=== PATIENT | male | born 1990 | race Caucasian/White ===

== ENCOUNTER 2019-08-17 15:20 | Emergency (ER) | payer MEDICAID ==
[~2019-08-17] VITALS: Ht 177.8 cm; Wt 92.0 kg
[2019-08-17 15:33] VITALS: BP 125/79
[2019-08-17] MEDS ORDERED: AMOX-580 PO (16:08)
[2019-08-17] MEDS ORDERED: ketorolac tromethamine 15mg/ml inj. IM ONE (16:10)
== END 2019-08-17 16:33 | disposition home or self-care (01) ==
LOC: ER 15:22
DX: J32.1 Chronic frontal sinusitis (principal); R51 Headache; F17.299 Nicotine dependence, other tobacco product, with unspecified nicotine-induced disorders
CPT/HCPCS: 99283; 99406; J1885

== ENCOUNTER 2019-08-17 20:44 | Emergency (ER) | payer MEDICAID ==
[~2019-08-17] VITALS: Ht 177.8 cm; Wt 86.4 kg
[~2019-08-17 20:44] MED LIST: AMOX-580 PO
[2019-08-17 20:51] VITALS: BP 146/91
[2019-08-17] MEDS ORDERED: ketorolac tromethamine 15mg/ml inj. IM ONE (21:25)
[2019-08-17] MEDS ORDERED: amox tr/potassium clavulanate 875/125mg TAB PO ONE (21:40)
== END 2019-08-17 21:52 | disposition home or self-care (01) ==
LOC: ER 20:45
DX: J32.0 Chronic maxillary sinusitis (principal); Z86.14 Personal history of Methicillin resistant Staphylococcus aureus infection
CPT/HCPCS: 96372; 99283; J1885

== ENCOUNTER 2019-11-01 20:42 | Emergency (ER) | payer MEDICAID, OTHER ==
[~2019-11-01] VITALS: Ht 177.8 cm; Wt 88.6 kg
[2019-11-01 20:59] VITALS: BP 147/90
[2019-11-01] MEDS ORDERED: HYDR-3965 PO (21:20)
[2019-11-01] MEDS ORDERED: AMOX500C2 PO (21:20)
[2019-11-01] MEDS ORDERED: ketorolac trometh inj. 60 MG/2 ML VIAL IM ONE (21:25)
--- NOTE | 2019-11-01 21:49 | NUR ---
pt seen and dc'd by provider
== END 2019-11-01 21:49 | disposition home or self-care (01) ==
LOC: ER 20:44
DX: K02.9 Dental caries, unspecified (principal); Z79.2 Long term (current) use of antibiotics; Z79.899 Other long term (current) drug therapy; Z86.14 Personal history of Methicillin resistant Staphylococcus aureus infection
CPT/HCPCS: 99283; J1885

== ENCOUNTER 2020-03-15 18:10 | Inpatient (IN) | payer MEDICAID ==
[~2020-03-15] VITALS: Ht 177.8 cm; Wt 95.7 kg
[2020-03-15] MEDS ORDERED: normal saline 1000ML IV soln IVB ONE (18:30)
--- NOTE | 2020-03-15 18:31 | NUR ---
Called poison control and opened a case concerning the patient. Poison control was notified that the patient ingested 1/5 of alcohol, 3 prozac, and 2 "handfuls" of gabapentin at an unknown dose. Poison control reported that gabapentin is well-tolerated and high dose effects include sedation, ataxia, and slurred speech. High doses of prozac can cause seizures. Poison control recommended to rule out aspirin and tylenol ingestion and to have an EKG performed. If QRS is greater than 120 to give bolus of bicarb and if QTC is greater than 500 to optimize electrolytes.
[2020-03-15 18:42] LABS: EOSINOPHILS # (AUTO) 0.3 X10'3 (0-0.9); LYMPHOCYTES % (AUTO) 39.1 % (21-51); MEAN PLATELET VOLUME 7.6 FL (7.4-10.4); MONOCYTES # (AUTO) 0.7 X10'3 (0-0.9); NEUTROPHILS # (AUTO) 5.8 X10'3 (1.8-7.7); RED CELL DISTRIBUTION WIDTH 14.2 % (11.5-14.5)
[2020-03-15 18:43] LABS: BASOPHILS # (AUTO) 0.2 X10'3 (0-0.2); BASOPHILS % (AUTO) 1.4 % (0-1); EOSINOPHILS % (AUTO) 2.6 % (0-6); HEMATOCRIT 49.7 % (42.0-52.0); HEMOGLOBIN 17.4 g/dl (14.0-17.9); LYMPHOCYTES # (AUTO) 4.4 X10'3 (1.1-4.8); MEAN CORPUSCULAR HEMOGLOBIN 32.7 PG (27.0-31.0); MEAN CORPUSCULAR VOLUME 93.4 FL (78-98); MONOCYTES % (AUTO) 5.9 % (2-12); PLATELET COUNT 331 X10'3 (140-440); RED BLOOD COUNT 5.32 X10'6 (4.70-6.10); WHITE BLOOD COUNT 11.4 X10'3 (4.5-11.0)
[2020-03-15] MEDS ORDERED: NO HOME MEDS (18:51)
[2020-03-15 18:54] LABS: ALANINE AMINOTRANSFERASE 34 U/L (12-78); ALBUMIN 4.4 G/DL (3.4-5.0); ALBUMIN/GLOBULIN RATIO 1.4 (1.1-1.5); ALKALINE PHOSPHATASE 116 IU/L (46-116); ANION GAP 10 (8-16); ASPARTATE AMINO TRANSFERASE 32 U/L (10-37); BILIRUBIN,TOTAL 0.6 MG/DL (0.1-1.0); BLOOD UREA NITROGEN 8 MG/DL (7-18); BUN/CREATININE RATIO 6.7 (5.4-32.0); CALCIUM 9.3 MG/DL (8.5-10.1); CHLORIDE 106 MMOL/L (99-107); CREATININE 1.19 MG/DL (0.60-1.10); ETHANOL 0.194 GM/DL (0.0-0.010); GLUCOSE 72 MG/DL (70-104); SODIUM 143 MMOL/L (135-145); TOTAL CARBON DIOXIDE 26.6 MMOL/L (24-32); TOTAL PROTEIN 7.5 G/DL (6.4-8.2); eGFR 72 ML/MIN
--- NOTE | 2020-03-15 18:58 | NUR ---
Jules Heredia pt mother [phone]
--- NOTE | 2020-03-15 19:02 | NUR ---
Spoke to pt's mother Beti who confirmed that the patient took gabapentin and prozac. She reported that the patient has been very depressed and talking about suicide for a while. She stated that he recently had been talking about "giving up."
[2020-03-15 19:06] LABS: ACETAMINOPHEN < 2.0 UG/ML (10-30)
[2020-03-15 19:09] LABS: POTASSIUM 2.6 MMOL/L (3.5-5.1)
[2020-03-15] MEDS ORDERED: potassium Cl 10 mEq/100mL bag IV ONE (19:25)
[2020-03-15 19:34] LABS: URINE AMPHETAMINE SCREEN POSITIVE (Neg); URINE BARBITUATE SCREEN NEGATIVE (Neg); URINE BENZODIAZEPINES SCREEN POSITIVE (Neg); URINE METHADONE SCREEN NEGATIVE (Neg)
[2020-03-15 19:35] LABS: URINE CANNABINOID SCREEN POSITIVE (Neg); URINE COCAINE SCREEN NEGATIVE (Neg); URINE OPIATE SCREEN NEGATIVE (Neg); URINE PHENCYCLIDINE SCREEN NEGATIVE (Neg)
[2020-03-15] MEDS ORDERED: potassium Cl 20mEq in NS 1,000 ML IV SCH (21:36)
[2020-03-15] MEDS ORDERED: potassium CL 10mEq/100ml bag 100 ML IV PRN (21:40)
[2020-03-15] MEDS ORDERED: magnesium hydroxide 30ml (MOM) UD suspension PO PRN (21:40)
[2020-03-15] MEDS ORDERED: acetaminophen 325mg tablet PO PRN (21:40)
[2020-03-15] MEDS ORDERED: ondansetron/PF 4mg/2ml inj IV PRN (21:40)
--- NOTE | 2020-03-15 21:59 | NUR ---
Contacted poison control to follow up on patient's status. Relayed current vital signs, lab results, and pt's mentation being alert and oriented and arousable with verbal stimulai. Poison control reported that 6 hours post time of ingestion is when they typically cut off observation and at this point medical clearance is up to the discretion of the ED physician. This information was given to MD Romo.
--- NOTE | 2020-03-15 22:15 | NUR ---
He just asked for a liter of ice water so I got that for him, he said he is just 'so thirsty' He drank most of it and is laying back down now.
[2020-03-15 23:00] VITALS: BP 127/64
--- NOTE | 2020-03-15 23:00 | NUR ---
PATIENT ADMITTED TO ROOM 347B FROM ER FOR SUICIDE ATTEMPT 5150 AND HYPOKALEMIA. PLACED COMFORTABLE IN BED. VITAL SIGNS TAKEN AND RECORDED.
[2020-03-16] MEDS: potassium CL 10mEq/100ml bag 100 ML IV PRN ×2 (00:30→02:53)
[2020-03-16 05:33] LABS: BASOPHILS % (AUTO) 0.5 % (0-1); EOSINOPHILS % (AUTO) 0.4 % (0-6); HEMATOCRIT 44.2 % (42.0-52.0); LYMPHOCYTES # (AUTO) 1.8 X10'3 (1.1-4.8); LYMPHOCYTES % (AUTO) 22.6 % (21-51); MEAN CORPUSCULAR HEMOGLOBIN 31.6 PG (27.0-31.0); MEAN CORPUSCULAR HGB CONC 33.9 g/dL (33.0-36.5); MEAN CORPUSCULAR VOLUME 93.3 FL (78-98); MONOCYTES # (AUTO) 0.5 X10'3 (0-0.9); MONOCYTES % (AUTO) 6.5 % (2-12); NEUTROPHILS # (AUTO) 5.4 X10'3 (1.8-7.7); PLATELET COUNT 252 X10'3 (140-440); RED BLOOD COUNT 4.74 X10'6 (4.70-6.10); RED CELL DISTRIBUTION WIDTH 14.1 % (11.5-14.5); WHITE BLOOD COUNT 7.8 X10'3 (4.5-11.0)
[2020-03-16 05:53] LABS: ALANINE AMINOTRANSFERASE 27 U/L (12-78); ALBUMIN 3.4 G/DL (3.4-5.0); ALBUMIN/GLOBULIN RATIO 1.3 (1.1-1.5); ALKALINE PHOSPHATASE 90 IU/L (46-116); ANION GAP 11 (8-16); ASPARTATE AMINO TRANSFERASE 31 U/L (10-37); BILIRUBIN,TOTAL 0.4 MG/DL (0.1-1.0); BLOOD UREA NITROGEN 5 MG/DL (7-18); BUN/CREATININE RATIO 6.8 (5.4-32.0); CALCIUM 7.5 MG/DL (8.5-10.1); CHLORIDE 104 MMOL/L (99-107); CREATININE 0.74 MG/DL (0.60-1.10); SODIUM 139 MMOL/L (135-145); TOTAL CARBON DIOXIDE 24.4 MMOL/L (24-32); eGFR > 90 ML/MIN
[2020-03-16 05:59] LABS: GLUCOSE 48 MG/DL (70-104)
--- NOTE | 2020-03-16 06:00 | NUR ---
CALLED DR. GUERRERO ABOUT CRITICAL GLUCOSE 48 AND POTASSIUM 3.0 WITH ORDERS.
[2020-03-16] MEDS ORDERED: glucagon, human recombinant 1mg kit SUBCUT PRN (06:10)
[2020-03-16] MEDS: dextrose ORAL solution 15 GM/59 ML bottle PO PRN ×8 (06:17→22:26)
--- NOTE | 2020-03-16 06:30 | NUR ---
Problems reprioritized. Patient report given, questions answered & plan of care reviewed with KHADIJAH CAMP.
--- NOTE | 2020-03-16 06:35 | NUR ---
Patient in room [facility]. I have received report from Mimi CAMP and had the opportunity to ask questions and assume patient care.
[2020-03-16] MEDS: K and/or MAG REPLACEMENT MC SCH ×2 (06:47→20:00)
[2020-03-16] MEDS ORDERED: potassium Cl 20 mEq SR tablet PO PRN (06:50)
[2020-03-16] MEDS ORDERED: magnesium Cl slow-release 64mg tablet PO PRN (06:50)
[2020-03-16] MEDS ORDERED: magnesium 4gm in 100ml NS 100 ML IV PRN (06:50)
[2020-03-16 07:00] VITALS: BP 138/70
[2020-03-16] MEDS: heparin, porcine 5000 units/ml vial SQ SCH ×2 (07:03→20:00)
[2020-03-16] MEDS: potassium Cl 20 mEq SR tablet PO PRN ×3 (07:03→18:40)
[2020-03-16 08:08] LABS: MAGNESIUM 1.7 MG/DL (1.5-2.4)
--- NOTE | 2020-03-16 08:47 | NUR ---
Dr. Woods paged regarding BS 38. BS dropped again 2hrs after glucose treatment from this morning. Pt is drinking juice and BS still low. Awaiting callback.
[2020-03-16] MEDS ORDERED: potassium Cl 20mEq in D5-NS 1,000 ML IV SCH (09:00)
[2020-03-16] MEDS ORDERED: folic acid inj. 2 MG, thiamine inj. 100 MG, MVI, adult No.4 with vit. K 10 ML in dextro... IV SCH ×4 (09:15)
[2020-03-16] MEDS ORDERED: MVI, adult No.4 with vit. K 10 ML in dextrose 5% water 500ml 500 ML IV SCH ×2 (09:23)
[2020-03-16] MEDS ORDERED: thiamine inj. 100 MG in normal saline 100ml IV soln 100 ML IV SCH (09:24)
[2020-03-16] MEDS ORDERED: folic acid 1mg/0.2ml inj IV SCH (09:25)
[2020-03-16] MEDS ORDERED: [UNRECOGNIZED DRUG - REMARK] IV SCH ×3 (09:33)
[2020-03-16 11:30] VITALS: BP 139/73
[2020-03-16] MEDS: dextrose 50%-water 50ml dispensing syringe IV PRN ×4 (16:16→23:31)
[2020-03-16] MEDS: DEXTROSE 10% IV SCH (16:48)
[2020-03-16] MEDS: POTASSIUM CL IV SCH (16:48)
[2020-03-16] MEDS: WATER IV SCH (16:48)
--- NOTE | 2020-03-16 17:53 | NUR ---
Dr. Woods aware of patients BS drops. Patient with sitter at bedside. NOC shift sitter educated on patient rapid drop in BS and is aware of s/s to watch for. Patient educated on s/s of blood sugar as well. Patient appropriate during full day shift, no issues. Patient states during the day that he did take a bottle of pills and he is unaware of the name of the medication, "started with a G." After a nurse states was it Glyburide? Patient states that it could have been glyburide and it sounds very familiar.
--- NOTE | 2020-03-16 18:18 | NUR ---
Problems reprioritized. Patient report given, questions answered & plan of care reviewed with Solange CAMP.
--- NOTE | 2020-03-16 18:30 | NUR ---
Patient in room [facility]. I have received report from KHADIJAH and had the opportunity to ask questions and assume patient care. SITTER AT BEDSIDE.
[2020-03-16 20:00] VITALS: BP 121/59
[2020-03-16 22:45] VITALS: BP 135/68
--- NOTE | 2020-03-17 00:10 | NUR ---
DR GUERRERO NOTIFIED: PT'S BLOOD GLUCOSE CONTINUES TO FREQUENTLY DROP DOWN TO THE 20s. ORDERS OBTAINED TO INCREASE D10 IV FLUID RATE TO 100 ML/HR.
[2020-03-17] MEDS: dextrose 50%-water 50ml dispensing syringe IV PRN ×5 (01:07→04:28)
[2020-03-17] MEDS: Dextrose 10%-water IV solution 1,000 ML IV SCH ×3 (01:54→19:02)
[2020-03-17] MEDS ORDERED: methylPREDNISolone sod succ 125mg/2ml vial IV STA (03:26)
--- NOTE | 2020-03-17 03:28 | NUR ---
DR GUERRERO NOTIFIED BLOOD GLUCOSE CONTINUES TO DROP TO 20s AND A LOW OF 17 EVERY HOUR. ORDERS OBTAINED TO INCREASE IV FLUID TO 150ML/HR AND GIVE SOLUMEDROL X 1.
[2020-03-17] MEDS: WATER IV SCH ×2 (03:31→11:38)
[2020-03-17] MEDS: DEXTROSE 10% IV SCH ×2 (03:31→11:38)
[2020-03-17] MEDS: POTASSIUM CL IV SCH ×2 (03:31→11:38)
[2020-03-17] MEDS: mag hydrox/Alum hydrox/simeth 30ml oral suspension PO PRN ×2 (05:10→07:31)
[2020-03-17] MEDS: dextrose ORAL solution 15 GM/59 ML bottle PO PRN ×4 (05:11→07:26)
--- NOTE | 2020-03-17 06:34 | NUR ---
Problems reprioritized. Patient report given, questions answered & plan of care reviewed with KHADIJAH.
--- NOTE | 2020-03-17 06:44 | NUR ---
I have received report from Solange CAMP and had the opportunity to ask questions and assume patient care.
[2020-03-17 06:45] VITALS: BP 117/66
--- NOTE | 2020-03-17 07:29 | NUR ---
Patient requesting Malox, notified MD. LAMAR to give dose early.
[2020-03-17] MEDS: multivitamins, therapeutics tablet PO SCH (07:32)
[2020-03-17] MEDS: folic acid 1mg tablet PO SCH (07:32)
[2020-03-17] MEDS: thiamine 100mg tablet PO SCH (07:32)
[2020-03-17] MEDS: heparin, porcine 5000 units/ml vial SQ SCH ×2 (07:40→20:00)
[2020-03-17] MEDS ORDERED: folic acid 1mg tablet PO SCH (08:00)
[2020-03-17] MEDS ORDERED: multivitamins, therapeutics tablet PO SCH (08:00)
[2020-03-17] MEDS ORDERED: thiamine 100mg tablet PO SCH (08:00)
[2020-03-17] MEDS: K and/or MAG REPLACEMENT MC SCH ×2 (08:17→20:00)
--- NOTE | 2020-03-17 08:30 | NUR ---
PAGER ID: [phone] MESSAGE: [phone] Melissa Mancilla BS have been very unstable throughout NOC shift and this AM. Taking Accu checks more frequently than Q2H, can we make him a 3:1 for high acuity patient? BS dropped to 17 during the NOC. Mariam [id number]
[2020-03-17 09:22] LABS: ALANINE AMINOTRANSFERASE 30 U/L (12-78); ALBUMIN 3.8 G/DL (3.4-5.0); ALBUMIN/GLOBULIN RATIO 1.2 (1.1-1.5); ALKALINE PHOSPHATASE 104 IU/L (46-116); AMYLASE 108 U/L (25-115); ANION GAP 8 (8-16); ASPARTATE AMINO TRANSFERASE 33 U/L (10-37); BILIRUBIN,TOTAL 0.5 MG/DL (0.1-1.0); BLOOD UREA NITROGEN 2 MG/DL (7-18); BUN/CREATININE RATIO 2.2 (5.4-32.0); CALCIUM 9.1 MG/DL (8.5-10.1); CHLORIDE 108 MMOL/L (99-107); GLUCOSE 89 MG/DL (70-104); LIPASE 419 U/L (73-393); POTASSIUM 5.1 MMOL/L (3.5-5.1); SODIUM 138 MMOL/L (135-145); TOTAL CARBON DIOXIDE 22.3 MMOL/L (24-32); eGFR > 90 ML/MIN
[2020-03-17 09:23] LABS: PHOSPHORUS 0.8 MG/DL (2.3-4.5)
--- NOTE | 2020-03-17 09:25 | NUR ---
PAGER ID: [phone] MESSAGE: Critical Value Phos 0.8 on Leann Mancilla [phone]
[2020-03-17] MEDS: LORazepam 1 MG tablet PO PRN ×5 (09:54→21:16)
[2020-03-17] MEDS: nicotine 21mg patch - 24 hr TD SCH (10:54)
[2020-03-17 11:00] VITALS: BP 119/71
[2020-03-17 11:52] LABS: BASOPHILS % (AUTO) 0.2 % (0-1); EOSINOPHILS % (AUTO) 0.3 % (0-6); HEMATOCRIT 52.5 % (42.0-52.0); HEMOGLOBIN 17.9 g/dl (14.0-17.9); LYMPHOCYTES # (AUTO) 0.7 X10'3 (1.1-4.8); LYMPHOCYTES % (AUTO) 9.2 % (21-51); MEAN CORPUSCULAR HEMOGLOBIN 31.9 PG (27.0-31.0); MEAN CORPUSCULAR HGB CONC 34.1 g/dL (33.0-36.5); MEAN CORPUSCULAR VOLUME 93.6 FL (78-98); MONOCYTES # (AUTO) 0.1 X10'3 (0-0.9); MONOCYTES % (AUTO) 1.4 % (2-12); NEUTROPHILS # (AUTO) 6.5 X10'3 (1.8-7.7); NEUTROPHILS % (AUTO) 88.9 % (42-75); PLATELET COUNT 252 X10'3 (140-440); RED BLOOD COUNT 5.61 X10'6 (4.70-6.10); RED CELL DISTRIBUTION WIDTH 14.8 % (11.5-14.5); WHITE BLOOD COUNT 7.3 X10'3 (4.5-11.0)
[2020-03-17] MEDS: Neutra Phos packet PO SCH ×2 (12:10→21:16)
--- NOTE | 2020-03-17 12:28 | NUR ---
PAGER ID: [phone] MESSAGE: Leann Arauz: K+ is now 5.0 down from 5.1! Mariam [id number]
--- NOTE | 2020-03-17 12:50 | NUR ---
pt states last bowel movement was 03/17 Addendum: 03/17/20 at 1256 by Crystal ESTRADA Amended: Links added.
--- NOTE | 2020-03-17 13:33 | NUR ---
PAGER ID: [phone] MESSAGE: [phone] Melissa Mancilla Management is Over riding our clinical judgement and taking off the 3:1 patient order. Mariam [id number] Management has stated that it isn't allowed to place a 3:1 order by MD. Patient has had critically low BS, as recorded in patients lab results. MD has been notified by the above stated page.
[2020-03-17 17:11] VITALS: BP 114/69
[2020-03-17] MEDS: acetaminophen 325mg tablet PO PRN (18:02)
--- NOTE | 2020-03-17 18:30 | NUR ---
Patient in room [facility]. I have received report from KHADIJAH and had the opportunity to ask questions and assume patient care. SITTER AT BEDSIDE
--- NOTE | 2020-03-17 18:30 | NUR ---
PAGER ID: [phone] MESSAGE: [phone] Melissa Mancilla Can he have melatonin for tonight. Mariam [phone]
[2020-03-17 20:00] VITALS: BP 114/69
[2020-03-17 23:00] VITALS: BP 120/68
[2020-03-18] MEDS: LORazepam 1 MG tablet PO PRN ×6 (02:38→20:04)
[2020-03-18] MEDS: Dextrose 10%-water IV solution 1,000 ML IV SCH ×3 (04:45→15:49)
--- NOTE | 2020-03-18 06:28 | NUR ---
Problems reprioritized. Patient report given, questions answered & plan of care reviewed with
[2020-03-18 06:49] VITALS: BP 110/62
[2020-03-18 06:50] LABS: BASOPHILS # (AUTO) 0.1 X10'3 (0-0.2); BASOPHILS % (AUTO) 1.2 % (0-1); EOSINOPHILS # (AUTO) 0.1 X10'3 (0-0.9); EOSINOPHILS % (AUTO) 1.7 % (0-6); HEMATOCRIT 49.1 % (42.0-52.0); HEMOGLOBIN 16.7 g/dl (14.0-17.9); LYMPHOCYTES # (AUTO) 2.3 X10'3 (1.1-4.8); LYMPHOCYTES % (AUTO) 35.8 % (21-51); MEAN CORPUSCULAR HEMOGLOBIN 31.8 PG (27.0-31.0); MEAN CORPUSCULAR HGB CONC 34.1 g/dL (33.0-36.5); MEAN CORPUSCULAR VOLUME 93.3 FL (78-98); MEAN PLATELET VOLUME 8.4 FL (7.4-10.4); MONOCYTES # (AUTO) 0.3 X10'3 (0-0.9); MONOCYTES % (AUTO) 5.1 % (2-12); NEUTROPHILS # (AUTO) 3.6 X10'3 (1.8-7.7); NEUTROPHILS % (AUTO) 56.2 % (42-75); PLATELET COUNT 229 X10'3 (140-440); RED BLOOD COUNT 5.26 X10'6 (4.70-6.10); RED CELL DISTRIBUTION WIDTH 14.3 % (11.5-14.5); WHITE BLOOD COUNT 6.5 X10'3 (4.5-11.0)
[2020-03-18 06:58] LABS: ALANINE AMINOTRANSFERASE 29 U/L (12-78); ALBUMIN 3.6 G/DL (3.4-5.0); ALBUMIN/GLOBULIN RATIO 1.2 (1.1-1.5); ALKALINE PHOSPHATASE 107 IU/L (46-116); AMYLASE 61 U/L (25-115); ANION GAP 10 (8-16); ASPARTATE AMINO TRANSFERASE 20 U/L (10-37); BILIRUBIN,TOTAL 0.4 MG/DL (0.1-1.0); BLOOD UREA NITROGEN 5 MG/DL (7-18); BUN/CREATININE RATIO 5.3 (5.4-32.0); CALCIUM 8.7 MG/DL (8.5-10.1); CHLORIDE 106 MMOL/L (99-107); CREATININE 0.95 MG/DL (0.60-1.10); GLUCOSE 119 MG/DL (70-104); LIPASE 210 U/L (73-393); MAGNESIUM 2.1 MG/DL (1.5-2.4); PHOSPHORUS 2.7 MG/DL (2.3-4.5); POTASSIUM 3.9 MMOL/L (3.5-5.1); SODIUM 141 MMOL/L (135-145); TOTAL CARBON DIOXIDE 24.7 MMOL/L (24-32); TOTAL PROTEIN 6.6 G/DL (6.4-8.2); eGFR > 90 ML/MIN
[2020-03-18] MEDS: multivitamins, therapeutics tablet PO SCH (07:45)
[2020-03-18] MEDS: thiamine 100mg tablet PO SCH (07:45)
[2020-03-18] MEDS: folic acid 1mg tablet PO SCH (07:45)
[2020-03-18] MEDS: Neutra Phos packet PO SCH (07:45)
[2020-03-18] MEDS: nicotine 21mg patch - 24 hr TD SCH (07:47)
[2020-03-18] MEDS: K and/or MAG REPLACEMENT MC SCH ×2 (08:00→20:00)
[2020-03-18] MEDS: heparin, porcine 5000 units/ml vial SQ SCH ×2 (08:20→19:57)
[2020-03-18] MEDS ORDERED: LORazepam 2 mg/ml vial IV PRN (09:00)
[2020-03-18] MEDS ORDERED: LORazepam 1 MG tablet PO PRN (09:00)
--- NOTE | 2020-03-18 10:31 | NUR ---
Student documentation: I have reviewed and agree with all interventions, assessments performed and documented by Yesenia, clinical nursing director.
--- NOTE | 2020-03-18 10:32 | NUR ---
Student Medication Administration: For this medication-pass time frame, all medication were reviewed, dispensed, administered and documented per hospital policy by Yesenia nursing clerk.
[2020-03-18 11:00] VITALS: BP 110/57
--- NOTE | 2020-03-18 11:05 | NUR ---
Dr Woods aware patients Phos level is 2.7 today up from .8 yesterday. Received orders to DC Neutra phos.
[2020-03-18 12:00] VITALS: BP 110/57
--- NOTE | 2020-03-18 13:09 | NUR ---
Patient in room [facility]. I have received report from ZOË Narvaez and had the opportunity to ask questions and assume patient care.
--- NOTE | 2020-03-18 15:58 | NUR ---
PAGER ID: [phone] MESSAGE: Cristela-Surg [phone] Re: Laurent Harris patient requesting Xanax instead of Ativan states has worked better for him in the past please call
--- NOTE | 2020-03-18 18:43 | NUR ---
Problems reprioritized. Patient report given, questions answered & plan of care reviewed with Nisa Paula RN.
--- NOTE | 2020-03-18 18:45 | NUR ---
Patient in room [facility]. I have received report from MYCHAL CAMP and had the opportunity to ask questions and assume patient care.
[2020-03-18 20:00] VITALS: BP 122/78
[2020-03-19] VITALS: BP 134/73
[2020-03-19] MEDS: LORazepam 1 MG tablet PO PRN ×3 (01:17→09:30)
[2020-03-19 05:55] LABS: BASOPHILS # (AUTO) 0.1 X10'3 (0-0.2); EOSINOPHILS # (AUTO) 0.2 X10'3 (0-0.9); EOSINOPHILS % (AUTO) 2.6 % (0-6); HEMOGLOBIN 17.1 g/dl (14.0-17.9); NEUTROPHILS # (AUTO) 3.2 X10'3 (1.8-7.7); WHITE BLOOD COUNT 6.3 X10'3 (4.5-11.0)
[2020-03-19 05:59] LABS: BASOPHILS % (AUTO) 1.3 % (0-1); HEMATOCRIT 49.3 % (42.0-52.0); LYMPHOCYTES # (AUTO) 2.6 X10'3 (1.1-4.8); LYMPHOCYTES % (AUTO) 40.5 % (21-51); MEAN CORPUSCULAR HEMOGLOBIN 32.5 PG (27.0-31.0); MEAN CORPUSCULAR HGB CONC 34.6 g/dL (33.0-36.5); MONOCYTES # (AUTO) 0.3 X10'3 (0-0.9); MONOCYTES % (AUTO) 5.5 % (2-12); NEUTROPHILS % (AUTO) 50.1 % (42-75); PLATELET COUNT 204 X10'3 (140-440); RED BLOOD COUNT 5.25 X10'6 (4.70-6.10); RED CELL DISTRIBUTION WIDTH 14.1 % (11.5-14.5)
[2020-03-19 06:09] LABS: ALANINE AMINOTRANSFERASE 39 U/L (12-78); ALBUMIN 3.5 G/DL (3.4-5.0); ALBUMIN/GLOBULIN RATIO 1.2 (1.1-1.5); ALKALINE PHOSPHATASE 101 IU/L (46-116); AMYLASE 63 U/L (25-115); ANION GAP 9 (8-16); ASPARTATE AMINO TRANSFERASE 31 U/L (10-37); BILIRUBIN,TOTAL 0.4 MG/DL (0.1-1.0); BLOOD UREA NITROGEN 7 MG/DL (7-18); BUN/CREATININE RATIO 7.4 (5.4-32.0); CALCIUM 8.9 MG/DL (8.5-10.1); CHLORIDE 106 MMOL/L (99-107); CREATININE 0.95 MG/DL (0.60-1.10); GLUCOSE 96 MG/DL (70-104); LIPASE 195 U/L (73-393); MAGNESIUM 2.3 MG/DL (1.5-2.4); PHOSPHORUS 3.3 MG/DL (2.3-4.5); POTASSIUM 4.1 MMOL/L (3.5-5.1); SODIUM 140 MMOL/L (135-145); TOTAL CARBON DIOXIDE 25.4 MMOL/L (24-32); TOTAL PROTEIN 6.5 G/DL (6.4-8.2); eGFR > 90 ML/MIN
--- NOTE | 2020-03-19 06:30 | NUR ---
Problems reprioritized. Patient report given, questions answered & plan of care reviewed with NICOLAS CAMP.
[2020-03-19 07:55] VITALS: BP 130/70
[2020-03-19] MEDS: K and/or MAG REPLACEMENT MC SCH (08:00)
[2020-03-19] MEDS: thiamine 100mg tablet PO SCH (08:06)
[2020-03-19] MEDS: folic acid 1mg tablet PO SCH (08:07)
[2020-03-19] MEDS: multivitamins, therapeutics tablet PO SCH (08:07)
[2020-03-19] MEDS: acetaminophen 325mg tablet PO PRN (08:07)
[2020-03-19] MEDS: heparin, porcine 5000 units/ml vial SQ SCH (08:08)
[2020-03-19] MEDS: nicotine 21mg patch - 24 hr TD SCH (08:12)
--- NOTE | 2020-03-19 11:17 | NUR ---
MD made aware Tylenol ineffective for chronic lower back pain and higher levels of anxiety. No new orders at this time.
[2020-03-19] MEDS ORDERED: LORazepam 1 MG tablet PO ONE (11:35)
[2020-03-19 12:00] VITALS: BP 138/72
--- NOTE | 2020-03-19 12:30 | NUR ---
Came out of another pt.'s room, nurse discharge planner made this RN aware that pt. had left AMA. This RN questioned this as pt. was on a 1798. Charge stated "The pt. cannot be kept here against his will." Per charge security, [employer], and nursing supervisor tan room notified. IV was DC'd by a co-nurse before pt. departure.
[2020-03-20] MEDS ORDERED: LORazepam 1 MG tablet PO PRN (09:00)
[2020-03-20] MEDS ORDERED: LORazepam 2 mg/ml vial IV PRN (09:00)
== END 2020-03-19 12:38 | disposition left against medical advice (07) | DRG 425 ==
LOC: ER 18:11 → ED HOLD 21:36 → SUR 3N 23:14
PROVIDERS: ADMIT Internal Medicine; ATTEND Family Medicine
DX: E87.6 Hypokalemia (principal); R45.851 Suicidal ideations; E16.1 Other hypoglycemia; F10.129 Alcohol abuse with intoxication, unspecified; F15.10 Other stimulant abuse, uncomplicated; Z53.29 Procedure and treatment not carried out because of patient's decision for other reasons; T78.8XXA Other adverse effects, not elsewhere classified, initial encounter; X58.XXXA Exposure to other specified factors, initial encounter; Z87.891 Personal history of nicotine dependence
CPT/HCPCS: 36415; 80053; 80305; 80320; 80329; 82150; 82948; 83690; 83735; 84100; 84132; 85025; 85610; 87081; 93005; 96361; 96365; 99285; G0378; J1644; J2405; J2930; J3411; J3480; J3490; J7030; J7060

== ENCOUNTER 2020-04-11 18:33 | Emergency (ER) | payer MEDICAID ==
[~2020-04-11] VITALS: Ht 177.8 cm; Wt 88.6 kg
[~2020-04-11 18:33] MED LIST changes: -AMOX-580 PO; +NO HOME MEDS
--- NOTE | 2020-04-11 20:08 | NUR ---
PT STATES HE TOOK XANAX TO KILL HIMSELF, ALONG WITH "TONS OF OTHER DRUGS". PT STATED HE TOOK LITHIUM TO HELP WITH THE ANXIETY, BUT COULD NOT SAY HOW MUCH. FATHER AT BEDSIDE STATES HE TOOK 7 XANAX 1 MG PILLS
[2020-04-11] MEDS ORDERED: naloxone 0.4 mg/ml inj IV ONE ×2 (20:30→21:45)
[2020-04-11 20:40] LABS: BASOPHILS # (AUTO) 0.1 X10'3 (0-0.2); BASOPHILS % (AUTO) 1.2 % (0-1); EOSINOPHILS # (AUTO) 0.3 X10'3 (0-0.9); EOSINOPHILS % (AUTO) 4.6 % (0-6); LYMPHOCYTES % (AUTO) 31.4 % (21-51); MEAN CORPUSCULAR HEMOGLOBIN 32.6 PG (27.0-31.0); MEAN CORPUSCULAR HGB CONC 34.9 g/dL (33.0-36.5); MEAN CORPUSCULAR VOLUME 93.4 FL (78-98); MEAN PLATELET VOLUME 7.8 FL (7.4-10.4); MONOCYTES # (AUTO) 0.5 X10'3 (0-0.9); MONOCYTES % (AUTO) 7.5 % (2-12); NEUTROPHILS # (AUTO) 3.5 X10'3 (1.8-7.7); NEUTROPHILS % (AUTO) 55.3 % (42-75); PLATELET COUNT 207 X10'3 (140-440); WHITE BLOOD COUNT 6.3 X10'3 (4.5-11.0)
[2020-04-11 20:47] LABS: ALANINE AMINOTRANSFERASE 29 U/L (12-78); ALBUMIN 3.9 G/DL (3.4-5.0); ALBUMIN/GLOBULIN RATIO 1.3 (1.1-1.5); ALKALINE PHOSPHATASE 117 IU/L (46-116); ANION GAP 10 (8-16); ASPARTATE AMINO TRANSFERASE 28 U/L (10-37); BLOOD UREA NITROGEN 12 MG/DL (7-18); BUN/CREATININE RATIO 10.3 (5.4-32.0); CALCIUM 8.6 MG/DL (8.5-10.1); CHLORIDE 110 MMOL/L (99-107); CREATININE 1.17 MG/DL (0.60-1.10); GLUCOSE 119 MG/DL (70-104); POTASSIUM 3.5 MMOL/L (3.5-5.1); SODIUM 145 MMOL/L (135-145); TOTAL CARBON DIOXIDE 25.4 MMOL/L (24-32); TOTAL PROTEIN 6.8 G/DL (6.4-8.2); eGFR 73 ML/MIN
[2020-04-11 20:57] LABS: ACETAMINOPHEN < 2.0 UG/ML (10-30); ETHANOL < 0.010 GM/DL (0.0-0.010)
--- NOTE | 2020-04-11 21:08 | NUR ---
NO CHANGE IN STATE OF AROUSAL AFTER ADMINISTRATION OF NARCAN, PROVIDER MADE AWARE
--- NOTE | 2020-04-11 21:35 | NUR ---
PT MORE DIFFICULT TO AROUSE, NAIMA SAMSON AT BEDSIDE ORDERED 0.4 NARCAN
[2020-04-11] MEDS ORDERED: LORazepam 2 mg/ml vial ONE (22:14)
[2020-04-11] MEDS ORDERED: diphenhydrAMINE 50 mg/ml inj ONE (22:14)
[2020-04-11] MEDS ORDERED: haloperidol lactate 5mg/ml inj ONE ×2 (22:14→22:16)
[2020-04-11] MEDS ORDERED: haloperidol lactate 5mg/ml inj IM ONE (22:15)
[2020-04-11] MEDS ORDERED: diphenhydrAMINE 50 mg/ml inj IM ONE (22:15)
--- NOTE | 2020-04-11 22:23 | NUR ---
PT UNABLE TO AROUSE, STRAIGHT CATHETER PERFROMED. PT AWAOKE AND BECAME PHYSICALLY AGGRESIVE, KICKING AND SWINING AT STAFF. SECURITY CALLED. HARD RESTRAINTS APPLIED, PT MEDICATED PER NAIMA PA ORDERS. PT INFORMED OF PLAN OF CARE AND BEHAVIOR REQUESIRED TO REMOVE RESTRAINTS, PT RESPONDING WITH MIDDLE FINGER
[2020-04-11 22:33] LABS: CLARITY,URINE CLEAR (Clear); COLOR,URINE YELLOW (Yellow); GLUCOSE, URINE NEGATIVE (Neg); KETONES,URINE NEGATIVE (Neg); LEUKOCYTE ESTERASE ,URINE NEGATIVE (Neg); NITRITES, URINE NEGATIVE (Neg); OCCULT BLOOD,URINE TRACE-LYSED (Neg); PH,URINE 5.5 (4.8-8.0); PROTEIN,URINE NEGATIVE (Neg); UROBILINOGEN,URINE 0.2 E.U/dL (0.2-1.0)
[2020-04-11 22:39] LABS: UA COLLECTION TYPE FOLEY CATH
[2020-04-11 22:40] LABS: BACTERIA,URINE FEW /HPF (Neg); MUCUS STRANDS FEW /LPF (Neg); RBC,URINE 0-2 /HPF (0-2); SQUAMOUS EPITHELIAL CELL,UR FEW /LPF (FEW); WBC CLUMPS,URINE FEW /HPF (NEGATIVE)
--- NOTE | 2020-04-11 22:45 | NUR ---
DURING ALTERCATION, PT IV PULLED OUT.
[2020-04-11 22:47] LABS: URINE AMPHETAMINE SCREEN POSITIVE (Neg); URINE BARBITUATE SCREEN NEGATIVE (Neg); URINE BENZODIAZEPINES SCREEN POSITIVE (Neg); URINE CANNABINOID SCREEN POSITIVE (Neg); URINE COCAINE SCREEN NEGATIVE (Neg); URINE METHADONE SCREEN NEGATIVE (Neg); URINE OPIATE SCREEN NEGATIVE (Neg); URINE PHENCYCLIDINE SCREEN NEGATIVE (Neg)
--- NOTE | 2020-04-11 23:25 | NUR ---
FACE TO FACE REPORT TO CARLO CAMP, PATIENT TRANSFERRED TO [place] [id number].
--- NOTE | 2020-04-12 06:08 | NUR ---
PACKET FAXED TO [facility]
--- NOTE | 2020-04-12 07:30 | NUR ---
Pt sleeping on right side. Respirations even and unlabored.
--- NOTE | 2020-04-12 09:30 | NUR ---
Pt sitting up in bed visiting with father.
--- NOTE | 2020-04-12 11:30 | NUR ---
Pt sill sleeping on left side. Respirations even and unlabored.
--- NOTE | 2020-04-12 13:30 | NUR ---
Pt now sleeping on right side. No s/s of acute distress noted.
--- NOTE | 2020-04-12 15:30 | NUR ---
Woke up to eat lunch and stated was going right back to sleep.
--- NOTE | 2020-04-12 17:26 | NUR ---
Pt still somnolent. Spoke with poison control who has cleared the case.
[2020-04-12 17:46] VITALS: BP 119/73
--- NOTE | 2020-04-12 19:18 | NUR ---
PT IN BED- NOT IN ANY DISTRESS OR DISCOMFORT. [facility] JUST ATTEMPTED TO EVAL- PT TOLD SCM THAT HE "IS NOT SUICIDAL AND NEVER WAS." RN WILL CONTINUE TO MONITOR.
--- NOTE | 2020-04-12 19:42 | NUR ---
CARLO RN WITH [facility] SPOKE WITH PT AND HE DOES NOT HAVE ANYWHERE TO GO AT THIS TIME-FATHER IS REFUSING TO HAVE HIM BACK AT HIS HOUSE. CARLO CAMP DOES NOT SEE A REASON TO HAVE HIM STAY AT [facility] FOR FURTHER EVAL / TREATMENT SINCE PT IS STATING HE IS NOT SUICIDAL. D/C ORDERS WRITTEN BY KEZIA AMBRIZ.
== END 2020-04-12 20:00 | disposition home or self-care (01) ==
LOC: ER 18:34
DX: T42.4X2A Poisoning by benzodiazepines, intentional self-harm, initial encounter (principal); F12.90 Cannabis use, unspecified, uncomplicated; F15.90 Other stimulant use, unspecified, uncomplicated; F11.90 Opioid use, unspecified, uncomplicated; Z86.14 Personal history of Methicillin resistant Staphylococcus aureus infection; Z72.89 Other problems related to lifestyle; Y92.89 Other specified places as the place of occurrence of the external cause
CPT/HCPCS: 36415; 80053; 80178; 80305; 80320; 80329; 81001; 84443; 85025; 96372; 96374; 96376; 99285; J1200; J1630; J2060; J2310